=== PATIENT | male | born 1965 | race African-American/Black ===

== ENCOUNTER 2017-01-09 21:50 | Observation (INO) | payer SELFPAY ==
[~2017-01-09] VITALS: Ht 182.9 cm; Wt 104.5 kg
[2017-01-09 21:57] VITALS: BP 201/109; PULSE 72; RESP 16; TEMP 98.7; O2SAT 96
[2017-01-09] MEDS ORDERED: HYDR12.57 PO (22:21)
[2017-01-09] MEDS ORDERED: NORV2.5T PO (22:21)
[2017-01-09 22:22] VITALS: BP 191/116; PULSE 67; RESP 18; O2SAT 97
[2017-01-09] MEDS ORDERED: SODIUM CHLORID 0.9% 500 ML INJ 500 ML IV ONE (22:45)
[2017-01-09] MEDS ORDERED: SODIUM CHLORIDE 0.9% FLUSH 10 ML FLUSH IVF PRN (22:45)
[2017-01-09] MEDS ORDERED: ONDANSETRON HCL 4 MG/2 ML VIAL IVP ONE (22:45)
[2017-01-09] MEDS ORDERED: MECLIZINE HCL 25 MG TAB PO ONE (22:45)
[2017-01-09 22:52] LABS: AUTOMATED NEUTROPHIL # 2.1 TH/MM3 (1.8-7.7); BASOPHIL % 0.6 % (0.0-2.0); EOSINOPHIL # 0.1 TH/MM3 (0-0.4); EOSINOPHIL % 2.6 % (0.0-4.0); HEMO FLAGS DIFF FINAL; LYMPHOCYTE # 2.3 TH/MM3 (1.0-4.8); MEAN CELL VOLUME 83.8 FL (80.0-100.0); MEAN CORPUSCULAR HEMOGLOBIN 27.4 PG (27.0-34.0); MEAN CORPUSCULAR HGB CONC 32.7 % (32.0-36.0); MONO % 10.3 % (0.0-8.0); NEUT % 41.5 % (16.0-70.0); PLATELET COUNT 222 TH/MM3 (150-450); RED BLOOD COUNT 4.66 MIL/MM3 (4.50-5.90); RED CELL DISTRIBUTION WIDTH 13.8 % (11.6-17.2); WHITE BLOOD COUNT 5.2 TH/MM3 (4.0-11.0)
--- NOTE | 2017-01-09 22:55 | RADRPT ---
EXAM DATE/TIME: 01/09/2017 22:49 [facility] COMPARISON: No previous studies available for comparison. INDICATIONS : Dizziness and headache RADIATION DOSE: 47.04 CTDIvol (mGy) MEDICAL HISTORY : Cardiovascular disease. Hypertension. SURGICAL HISTORY : None. ENCOUNTER: Initial ACUITY: 1 day PAIN SCALE: 3/10 LOCATION: Bilateral cranial TECHNIQUE: Multiple contiguous axial images were obtained of the head. Using automated exposure control and adj ustment of the mA and/or kV according to patient size, radiation dose was kept as low as reasonably a chievable to obtain optimal diagnostic quality images. FINDINGS: CEREBRUM: The ventricles are normal for age. No evidence of midline shift, mass lesion, hemorrhage or acute in farction. No extra-axial fluid collections are seen. POSTERIOR FOSSA: The cerebellum and brainstem are intact. The 4th ventricle is midline. The cerebellopontine angle i s unremarkable. EXTRACRANIAL: The visualized portion of the orbits is intact. SKULL: The calvaria is intact. No evidence of skull fracture. CONCLUSION: 1. No evidence of acute intracranial pathology. No masses are identified. Raf Rueda MD on January 09, 2017 at 22:53 Board Certified Radiologist. This report was verified electronically.
[2017-01-09 23:02] LABS: APTT (PATIENT) 26.7 SEC (24.3-30.1)
[2017-01-09 23:20] LABS: CHLORIDE 104 MEQ/L (98-107); POTASSIUM 3.4 MEQ/L (3.5-5.1); SODIUM (NA) 141 MEQ/L (136-145)
[2017-01-09 23:27] LABS: ALKALINE PHOSPHATASE 51 U/L (45-117); ALT (GPT) 26 U/L (12-78); ANION GAP 6 MEQ/L (5-15); AST (GOT) 24 U/L (15-37); BICARBONATE 30.9 MEQ/L (21.0-32.0); BLOOD UREA NITROGEN 11 MG/DL (7-18); CREATINE KINASE 216 U/L (39-308); GLOMERULAR FILTRATION RATE 64 ML/MIN (>89); TOTAL BILIRUBIN ADULT 0.7 MG/DL (0.2-1.0)
--- NOTE | 2017-01-09 23:33 | RADRPT ---
EXAM DATE/TIME: 01/09/2017 23:20 [facility] COMPARISON: No previous studies available for comparison. INDICATIONS : Short of breath. MEDICAL HISTORY : Cardiovascular disease. Hypertension. SURGICAL HISTORY : None. ENCOUNTER: Initial ACUITY: 1 day PAIN SCORE: 0/10 LOCATION: Bilateral chest FINDINGS: A single view of the chest demonstrates the lungs to be symmetrically aerated without evidence of mas s, infiltrate or effusion. Atherosclerotic changes are present in the aorta location calcification. The cardiomediastinal contours are unremarkable. Osseous structures are intact. There are multiple o verlying cardiac leads. CONCLUSION: No acute disease. Douglas Landeros MD on January 09, 2017 at 23:31 Board Certified Radiologist. This report was verified electronically.
[2017-01-09 23:40] LABS: CKMB 1.1 NG/ML (0.5-3.6)
[2017-01-10] VITALS (9 sets, daily range): BP systolic 141–193; BP diastolic 84–106; PULSE 61–75; RESP 18–20; TEMP 97.5–98.2; O2SAT 95–98
[2017-01-10] MEDS ORDERED: cloNIDine HCL 0.2 MG TAB PO ONE (00:15)
--- NOTE | 2017-01-10 00:29 | PD ---
HPI Chief Complaint: Dizziness Time Seen by Provider: 22:22 Travel History International Travel<30 days: No Contact w/Intl Traveler<30days: No Traveled to known affect area: No History of Present Illness HPI Patient is a 51-year-old male who comes in after a near syncopal episode. He says he was on the beach today when he suddenly became very dizzy and felt significantly was given a pass out. He says he went down to his knees, but he did not fall or hit his head. He has a left-sided headache. He denies any blurred vision, chest pain, shortness of breath. His blood pressure has been elevated today. [facility] Past Medical History Cardiovascular Problems: Yes (HTN) Diminished Hearing: No Hypertension: Yes Medical other: Yes (BLOOD CLOTS ) Tetanus Vaccination: < 5 Years Social History Alcohol Use: No Tobacco Use: No Substance Use: No Allergies-Medications (Allergen,Severity, Reaction): Coded Allergies: No Known Allergies (Unverified , 01/09/17) Reported Meds & Prescriptions Reported Meds & Active Scripts Active Reported Hydrochlorothiazide 12.5 Mg Cap 12.5 Mg PO DAILY Norvasc (Amlodipine Besylate) 2.5 Mg Tab 2.5 Mg PO DAILY Review of Systems Except as stated in HPI: all other systems reviewed are Neg General / Constitutional: No: Fever, Chills Eyes: No: Blurred Vision HENT: Positive: Headaches, Lightheadedness Cardiovascular: No: Chest Pain or Discomfort Respiratory: No: Shortness of Breath Gastrointestinal: No: Nausea, Vomiting Musculoskeletal: No: Myalgias Skin: No Rash, No Change in Pigmentation Neurologic: Positive: Dizziness Physical Exam Narrative GENERAL: Awake and alert, in no acute distress. SKIN: Focused skin assessment warm/dry. HEAD: Atraumatic. Normocephalic. EYES: Pupils equal and round. No scleral icterus. Extraocular movements intact. ENT: Mucous membranes pink and moist. NECK: Trachea midline. No JVD. CARDIOVASCULAR: Regular rate and rhythm. No murmur appreciated. RESPIRATORY: No accessory muscle use. Clear to auscultation. Breath sounds equal bilaterally. GASTROINTESTINAL: Abdomen soft, non-tender, nondistended. MUSCULOSKELETAL: No obvious deformities. No clubbing. No cyanosis. No edema. NEUROLOGICAL: Awake and alert. No obvious cranial nerve deficits. Motor grossly within normal limits. Normal speech. PSYCHIATRIC: Appropriate mood and affect; insight and judgment normal. Data Data Last Documented VS Vital Signs Date Time Temp Pulse Resp B/P Pulse Ox O2 Delivery O2 Flow Rate FiO2 01/09/17 22:22 67 18 191/116 97 01/09/17 21:57 98.7 Room Air Orders Complete Blood Count With Diff (01/09/17 22:31) Comprehensive Metabolic Panel (01/09/17 22:31) Ckmb (Isoenzyme) Profile (01/09/17 22:31) Troponin I (01/09/17 22:31) Act Partial Throm Time (Ptt) (01/09/17 22:31) Prothrombin Time / Inr (Pt) (01/09/17 22:31) Chest, Single Ap (01/09/17 22:31) Ct Brain W/O Iv Contrast(Rout) (01/09/17 22:31) Ecg Monitoring (01/09/17 22:31) Iv Access Insert/Monitor (01/09/17 22:31) Oximetry (01/09/17 22:31) Meclizine (Antivert) (01/09/17 22:45) Ondansetron Inj (Zofran Inj) (01/09/17 22:45) Sodium Chloride 0.9% Flush (Ns Flush) (01/09/17 22:45) Sodium Chlorid 0.9% 500 Ml Inj (Ns 500 M (01/09/17 22:45) CKMB (01/09/17 22:44) CKMB% (01/09/17 22:44) Clonidine (Catapres) (01/10/17 00:15) Admit Order (Ed Use Only) (01/10/17 ) Labs Laboratory Tests Test 01/09/17 22:44 White Blood Count 5.2 TH/MM3 Red Blood Count 4.66 MIL/MM3 Hemoglobin 12.8 GM/DL Hematocrit 39.0 % Mean Corpuscular Volume 83.8 FL Mean Corpuscular Hemoglobin 27.4 PG Mean Corpuscular Hemoglobin 32.7 % Concent Red Cell Distribution Width 13.8 % Platelet Count 222 TH/MM3 Mean Platelet Volume 8.2 FL Neutrophils (%) (Auto) 41.5 % Lymphocytes (%) (Auto) 45.0 % Monocytes (%) (Auto) 10.3 % Eosinophils (%) (Auto) 2.6 % Basophils (%) (Auto) 0.6 % Neutrophils # (Auto) 2.1 TH/MM3 Lymphocytes # (Auto) 2.3 TH/MM3 Monocytes # (Auto) 0.5 TH/MM3 Eosinophils # (Auto) 0.1 TH/MM3 Basophils # (Auto) 0.0 TH/MM3 CBC Comment DIFF FINAL Differential Comment Prothrombin Time 11.0 SEC Prothromb Time International 1.0 RATIO Ratio Activated Partial 26.7 SEC Thromboplast Time Sodium Level 141 MEQ/L Potassium Level 3.4 MEQ/L Chloride Level 104 MEQ/L Carbon Dioxide Level 30.9 MEQ/L Anion Gap 6 MEQ/L Blood Urea Nitrogen 11 MG/DL Creatinine 1.41 MG/DL Estimat Glomerular Filtration 64 ML/MIN Rate Random Glucose 102 MG/DL Calcium Level 8.4 MG/DL Total Bilirubin 0.7 MG/DL Aspartate Amino Transf 24 U/L (AST/SGOT) Alanine Aminotransferase 26 U/L (ALT/SGPT) Alkaline Phosphatase 51 U/L Total Creatine Kinase 216 U/L Creatine Kinase MB 1.1 NG/ML Troponin I LESS THAN 0.02 NG/ML Total Protein 7.9 GM/DL Albumin 3.6 GM/DL D-Dimer Quantitative (PE/DVT) 2.10 MG/L [facility] Medical Decision Making Medical Screen Exam Complete: Yes Emergency Medical Condition: Yes Interpretation(s) ECG shows normal sinus rhythm, no ST elevation or depression and normal intervals Differential Diagnosis Electrolyte abnormality versus arrhythmia versus ACS Narrative Course Patient is a 51-year-old male comes in complaining of a near syncopal episode. Exam shows no neurologic abnormalities. IV established, labs sent. Labs show no acute abnormalities. CT head performed shows no acute abnormalities. Last 24 hours Impressions Lower Extremity Ultrasound 01/10/17 0000 Signed Impressions: Service Date/Time: December 03:13 - CONCLUSION: Nonocclusive bilateral deep venous thrombosis of indeterminate age but may be chronic. Douglas Landeros MD Head CT 01/09/172230 Signed Impressions: Service Date/Time: Monday, January 09, 2017 22:49 - CONCLUSION: 1. No evidence of acute intracranial pathology. No masses are identified. Raf Rueda MD Chest X-Ray 5/17/17 2231 Signed Impressions: Service Date/Time: Monday, January 09, 2017 23:20 - CONCLUSION: No acute disease. Douglas Landeros MD Patient given IV fluids. Given clonidine for his blood pressure. Placed in observation for near-syncope. Diagnosis Primary Impression: Near syncope Admitting Information Admitting Physician Requests: Observation Condition: Stable Melita Ferrell MD January 10, 2017 00:29
[2017-01-10] MEDS ORDERED: NALOXONE HCL 0.4 MG/ML AMP IV PRN (00:30)
[2017-01-10] MEDS ORDERED: SODIUM CHLORIDE 0.9% FLUSH 10 ML FLUSH IV FLUSH PRN (00:30)
[2017-01-10] MEDS ORDERED: POTASSIUM CHLORIDE 20 MEQ CONTROLLED RELEASE TAB PO ONE ×2 (00:45→15:00)
--- NOTE | 2017-01-10 02:03 | HHI.HP ---
[facility] Primary Care Physician No Primary Care Physician Admission Diagnosis near-syncope Diagnoses: Travel History International Travel<30 Days: No Contact w/Intl Traveler <30 Da: No Traveled to Known Affected Are: No History of Present Illness lightheaded while walking on beach no ear proble rested for na hour on car still dizzy no ear problem never had similar symptoms left arm numbness nad tingling past few days and now no weakness felt leg on right is swollken more than left hx of dvt in both calfs was on coumadin - for years [ off for it for 4 yrs now never found reason for clots couple fo times blood clot a week ago, came here from [place] by bus was little short of breath no chest pain Review of Systems Except as stated in HPI: all other systems reviewed are Neg Past Family Social History Past Medical History htn hx of dvt of bilateral LE - started late s, happened a few times- off coumadin 4 yrs as they dissolved per his doctors Past Surgical History left knee sx- 2013 Reported Medications norvasc 5mg po daily hctz 12.5mg po daily Allergies: Coded Allergies: No Known Allergies (Unverified , 01/09/17) Family History cancer - grandfather htn , dm- mother Social History no smoking/ no etoh/ no drugs smoked only for 2 yrs as a teenager Physical Exam Vital Signs Vital Signs Date Time Temp Pulse Resp B/P Pulse Ox O2 Delivery O2 Flow Rate FiO2 01/10/17 01:56 152/88 01/10/17 01:41 97.9 70 20 193/98 96 01/10/17 00:59 75 18 170/96 98 01/09/17 22:22 67 18 191/116 97 01/09/17 22:21 68 18 97 01/09/17 21:57 98.7 72 16 201/109 96 Room Air Physical Exam GENERAL: This is a well-nourished, well-developed patient, in no apparent distress. SKIN: No rashes, ecchymoses or lesions. Cool and dry. HEAD: Atraumatic. Normocephalic. No temporal or scalp tenderness. EYES: Pupils equal round and reactive. Extraocular motions intact. No scleral icterus. No injection or drainage. ENT: Nose without bleeding, purulent drainage or septal hematoma. Airway patent. NECK: Trachea midline. No JVD CARDIOVASCULAR: Regular rate and rhythm without murmurs, gallops, or rubs. RESPIRATORY: Clear to auscultation. Breath sounds equal bilaterally. No wheezes , rales, or rhonchi. GASTROINTESTINAL: Abdomen soft, non-tender, nondistended. No guarding. MUSCULOSKELETAL: Extremities without clubbing, cyanosis. Right lower extremity significantly bigger than the left. Pain on bilateral calf. NEUROLOGICAL: Awake and alert Motor and sensory grossly within normal limits. Normal speech. Laboratory Laboratory Tests Test 01/09/17 22:44 White Blood Count 5.2 Red Blood Count 4.66 Hemoglobin 12.8 Hematocrit 39.0 Mean Corpuscular Volume 83.8 Mean Corpuscular Hemoglobin 27.4 Mean Corpuscular Hemoglobin 32.7 Concent Red Cell Distribution Width 13.8 Platelet Count 222 Mean Platelet Volume 8.2 Neutrophils (%) (Auto) 41.5 Lymphocytes (%) (Auto) 45.0 Monocytes (%) (Auto) 10.3 Eosinophils (%) (Auto) 2.6 Basophils (%) (Auto) 0.6 Neutrophils # (Auto) 2.1 Lymphocytes # (Auto) 2.3 Monocytes # (Auto) 0.5 Eosinophils # (Auto) 0.1 Basophils # (Auto) 0.0 CBC Comment DIFF FINAL Differential Comment Prothrombin Time 11.0 Prothromb Time International 1.0 Ratio Activated Partial 26.7 Thromboplast Time Sodium Level 141 Potassium Level 3.4 Chloride Level 104 Carbon Dioxide Level 30.9 Anion Gap 6 Blood Urea Nitrogen 11 Creatinine 1.41 Estimat Glomerular Filtration 64 Rate Random Glucose 102 Calcium Level 8.4 Total Bilirubin 0.7 Aspartate Amino Transf 24 (AST/SGOT) Alanine Aminotransferase 26 (ALT/SGPT) Alkaline Phosphatase 51 Total Creatine Kinase 216 Creatine Kinase MB 1.1 Troponin I LESS THAN 0.02 Total Protein 7.9 Albumin 3.6 Result Diagram: 01/09/17 2244 01/09/17 2244 Imaging Last 48 hours Impressions Lower Extremity Ultrasound 01/10/17 0000 Signed Impressions: Service Date/Time: December 03:13 - CONCLUSION: Nonocclusive bilateral deep venous thrombosis of indeterminate age but may be chronic. Douglas Landeros MD CT Angiography 01/10/17 0000 Signed Impressions: Service Date/Time: December 05:37 - CONCLUSION: 1. No evidence of pulmonary embolism. 2. No confluent infiltrates or effusions. 3. Cardiomegaly with no evidence of pulmonary edema Douglas Landeros MD Head CT 01/09/172230 Signed Impressions: Service Date/Time: Monday, January 09, 2017 22:49 - CONCLUSION: 1. No evidence of acute intracranial pathology. No masses are identified. Raf Rueda MD Chest X-Ray 01/09/172230 Signed Impressions: Service Date/Time: Monday, January 09, 2017 23:20 - CONCLUSION: No acute disease. Douglas Landeros MD Assessment and Plan Assessment and Plan Impression: Dizziness/near syncopal episodesetiology unclear. Rule out cardiac arrhythmia/ thromboembolism. Bilateral lower extremity edema with calf asymmetryrule out acute DVT. Recent travel from [place] to here by us a week ago, with complaint of shortness of breathrule out pulmonary embolism. Hypokalemiareplaced. We'll repeat. Renal insufficiencyacute versus chronic. Possible secondary to dehydration. We'll hydrate and repeat. htn hx of dvt of bilateral LE - started late 80s, happened a few times- off coumadin 4 yrs as they dissolved per his doctors Plan: Serial cardiac enzymes and EKGs. Telemetry monitoring. Echocardiogram. Carotid sono. Would obtain bilateral lower extremity ultrasound to rule out DVT. Would need anticoagulation lifelong. My opinion. Also obtain CT pulmonary angiogram to rule out PE. Resume home meds for hypertension. DVT prophylaxisLovenox. Discussed Condition With Patient, ER physician, patient's nurse Pako Bran MD January 10, 2017 02:03
[2017-01-10] MEDS: SODIUM CHLOR 0.9% 1000 ML INJ 1,000 ML IV SCH ×2 (02:18→15:08)
--- NOTE | 2017-01-10 04:13 | RADRPT ---
EXAM DATE/TIME: 01/10/2017 03:13 [facility] COMPARISON: No previous studies available for comparison. INDICATIONS : Bilateral leg swelling. MEDICAL HISTORY : Hypertension. Deep vein thrombosis. SURGICAL HISTORY : Left knee surgery. ENCOUNTER: Initial ACUITY: 1 day PAIN SCORE: 0/10 LOCATION: Bilateral leg. TECHNIQUE: Venous ultrasound of the left and right leg was performed from the inguinal ligament to the proximal calf. Real-time, color Doppler and spectral tracing, compression and augmentation techniques were us ed. FINDINGS: RIGHT LEG: There is nonocclusive thrombus in the superficial femoral vein, popliteal vein and peroneal vein whic h are partially compressible. The common femoral vein is patent and compressible. The posterior tibia l vein and greater saphenous vein are compressible as well. LEFT LEG: There is nonocclusive thrombus in the superficial femoral vein, popliteal vein and peroneal vein whic h are only partially compressible. The common femoral vein is patent and fully compressible. The post erior tibial vein and greater saphenous vein are patent as well and fully compressible. CONCLUSION: Nonocclusive bilateral deep venous thrombosis of indeterminate age but may be chronic. Douglas Landeros MD on January 10, 2017 at 4:08 Board Certified Radiologist. This report was verified electronically.
[2017-01-10] MEDS ORDERED: ENOXAPARIN SODIUM 100 MG/ML SYRINGE SQ SCH (05:00)
[2017-01-10] MEDS ORDERED: IOHEXOL 350 MG/ML 10 ML VIAL (for RAD DIAG) IV ONE (05:40)
--- NOTE | 2017-01-10 06:11 | RADRPT ---
EXAM DATE/TIME: 01/10/2017 05:37 [facility] COMPARISON: No previous studies available for comparison. INDICATIONS : Shortness of breath. Elevated D-Dimer. IV CONTRAST: 75 cc Omnipaque 350 (iohexol) IV RADIATION DOSE: 23.38 CTDIvol (mGy) MEDICAL HISTORY : Hypertension. Deep venous thrombosis. SURGICAL HISTORY : None. ENCOUNTER: Initial ACUITY: 1 day PAIN SCALE: 0/10 LOCATION: chest TECHNIQUE: Volumetric scanning of the chest was performed using a pulmonary embolism protocol MIP images were re constructed. Using automated exposure control and adjustment of the mA and/or kV according to patien t size, radiation dose was kept as low as reasonably achievable to obtain optimal diagnostic quality images. FINDINGS: PULMONARY ARTERIES: No filling defects are seen in the pulmonary arteries through the segmental level. LUNGS: There is no consolidation or pneumothorax . No concerning pulmonary nodule is visualized. PLEURAE: There is no pleural thickening or pleural effusion. MEDIASTINUM: There is good visualization of the great vessels of the middle mediastinum. No evidence of mediastin al or hilar adenopathy/mass. There is moderate cardiomegaly. The MUSCULOSKELETAL: Within normal limits for patient age. MISCELLANEOUS: The visualized upper abdominal organs demonstrate no acute abnormality. CONCLUSION: 1. No evidence of pulmonary embolism. 2. No confluent infiltrates or effusions. 3. Cardiomegaly with no evidence of pulmonary edema Douglas Landeros MD on January 10, 2017 at 6:08 Board Certified Radiologist. This report was verified electronically.
[2017-01-10] MEDS ORDERED: cloNIDine HCL 0.1 MG TAB PO PRN (07:30)
--- NOTE | 2017-01-10 10:01 | RADRPT ---
EXAM DATE/TIME: 01/10/2017 08:07 [facility] COMPARISON: No previous studies available for comparison. INDICATIONS : Syncope. MEDICAL HISTORY : Hypertension. History of DVT. SURGICAL HISTORY : Left knee surgery. ENCOUNTER: Initial ACUITY: 1 day PAIN SCORE: 1/10 LOCATION: Bilateral neck PEAK SYSTOLIC VELOCITIES (cm/sec): ICA/CCA RATIO: Right: 0.8 Left: 0.9 ICA: Right: 58 Left: 74 CCA: Right: 73 Left: 87 ECA: Right: 71 Left: 51 VERTEBRAL: Right: 39 antegrade Left: 50 antegrade Elevated flow velocities and ICA/CCA ratios have been found to correlate with increased degrees of vessel stenosis, calculated as percentage of diameter relative to a normal segment of distal ICA/CCA FINDINGS: RIGHT CAROTID: No significant stenosis is visualized. The waveforms are within normal limits. LEFT CAROTID: No significant stenosis is visualized. The waveforms are within normal limits. VERTEBRAL ARTERIES: Antegrade flow is seen in both vertebral arteries. MISCELLANEOUS: None. CONCLUSION: 1. Patent carotid arteries bilaterally. 2. Antegrade flow involving both vertebral arteries. Bhaskar Villafuerte Jr., MD on January 10, 2017 at 9:26 Board Certified Radiologist. This report was verified electronically.
[2017-01-10] MEDS: SODIUM CHLORIDE 0.9% FLUSH 10 ML FLUSH IV FLUSH SCH ×2 (10:23→21:00)
[2017-01-10 13:09] LABS: CREATINE KINASE 137 U/L (39-308)
--- NOTE | 2017-01-10 13:49 | EKG ---
Date Performed: 01/10/2017 Time Performed: 05:07:00 PTAGE: 51 years EKG: Sinus rhythm NONSPECIFIC T-WAVE ABNORMALITY BORDERLINE ECG Compared to prior tracing no significant change PREVIOUS TRACING : 01/09/17 DOCTOR: Tello Flores Interpretating Date/Time 01/10/2017 13:45:36
--- NOTE | 2017-01-10 13:59 | EKG ---
Date Performed: 01/09/2017 Time Performed: 22:22:39 PTAGE: 51 years EKG: Sinus rhythm NONSPECIFIC T-WAVE ABNORMALITY BORDERLINE ECG Cannot rule out ischemia Clinical correlation is recom mended NO PREVIOUS TRACING DOCTOR: Tello Flores Interpretating Date/Time 01/10/2017 13:58:18
[2017-01-10] MEDS ORDERED: RIVAROXABAN 15 MG TAB PO ONE (14:30)
[2017-01-10] MEDS ORDERED: MECLIZINE HCL 25 MG TAB PO ONE (14:30)
--- NOTE | 2017-01-10 14:34 | RADRPT ---
EXAM DATE/TIME: 01/10/2017 11:47 [facility] COMPARISON: No previous studies available for comparison. INDICATIONS : Near syncope. MEDICAL HISTORY : Deep venous thrombosis. SURGICAL HISTORY : Left knee. ENCOUNTER: Initial ACUITY: 1 day PAIN SCORE: 0/10 LOCATION: Head. Please note a normal MRA of the brain does not entirely exclude the possibility of a small aneurysm, nor the possibility of distal intracranial vessel disease. TECHNIQUE: 3D time of flight MRA was performed. Source images, multiplanar STS MIP, and 3D volume MIP reconstru ctions were reviewed. FINDINGS: There is excellent visualization of the major intracranial arteries out to the second-order branch ve ssels. There is no evidence for aneurysm, vessel truncation or stenosis, and no evidence for vascula r malformation. There are prominent patent posterior communicating arteries bilaterally. Small P1 se gments bilaterally. CONCLUSION: Normal examination with a patent [place] of [place]. Ish Bergeron MD on January 10, 2017 at 14:32 Board Certified Radiologist. This report was verified electronically.
--- NOTE | 2017-01-10 14:40 | HHI.PR ---
Subjective Remarks Follow-up for lightheadedness. The patient continues to complain of lightheadedness at this time. He states the lightheadedness is persistent, even while lying in bed. He denies any room spinning sensation. He denies any vision changes or focal weakness. He states the symptoms started while [place] the [place] yesterday. He has some pain in his right leg. He does admit to some discomfort in his left hip during exam. Otherwise he denies any pain. He denies any chest pain, shortness of breath, fever, chills, nausea, vomiting, diarrhea. He was on Coumadin greater than 4 years ago for history of DVT. He states he was never found out why he was having blood clots. He never had any blood clots on Coumadin. He is recently moved to the area and is employed and hopes to have insurance and 30 days. He would like to avoid Coumadin if possible. Objective Vitals Vital Signs Date Time Temp Pulse Resp B/P Pulse Ox O2 Delivery O2 Flow Rate FiO2 01/10/17 12:29 98.2 61 19 142/89 95 141/89 142/90 01/10/17 09:41 72 01/10/17 08:00 97.9 64 19 149/90 96 01/10/17 02:30 65 01/10/17 01:56 152/88 01/10/17 01:41 97.9 70 20 193/98 96 01/10/17 00:59 75 18 170/96 98 01/09/17 22:22 67 18 191/116 97 01/09/17 22:21 68 18 97 01/09/17 21:57 98.7 72 16 201/109 96 Room Air Result Diagram: 01/09/17 2244 01/09/17 2244 Imaging Last Impressions Lower Extremity Ultrasound 01/10/17 0000 Signed Impressions: Service Date/Time: December 03:13 - CONCLUSION: Nonocclusive bilateral deep venous thrombosis of indeterminate age but may be chronic. Douglas Landeros MD Carotid Artery Ultrasound 01/10/17 0000 Signed Impressions: Service Date/Time: December 08:07 - CONCLUSION: 1. Patent carotid arteries bilaterally. 2. Antegrade flow involving both vertebral arteries. Bhaskar Villafuerte Jr., MD CT Angiography 01/10/17 0000 Signed Impressions: Service Date/Time: December 05:37 - CONCLUSION: 1. No evidence of pulmonary embolism. 2. No confluent infiltrates or effusions. 3. Cardiomegaly with no evidence of pulmonary edema Douglas Landeros MD Head CT 01/09/172230 Signed Impressions: Service Date/Time: Monday, January 09, 2017 22:49 - CONCLUSION: 1. No evidence of acute intracranial pathology. No masses are identified. Raf Rueda MD Chest X-Ray 01/09/172230 Signed Impressions: Service Date/Time: Monday, January 09, 2017 23:20 - CONCLUSION: No acute disease. Douglas Landeros MD Objective Remarks GENERAL: Well-developed well-nourished. In no acute distress. SKIN: Warm and dry. No lesions noted. HEENT: Normocephalic. Pupils equal and round. Mucous membranes pink and moist. CARDIOVASCULAR: Regular rate and rhythm. No murmur appreciated. RESPIRATORY: No accessory muscle use. Clear to auscultation. Breath sounds equal bilaterally. GASTROINTESTINAL: Abdomen soft, non-tender, nondistended. Bowel sounds x4. MUSCULOSKELETAL: Bilateral lower extremity swelling, R>L. No clubbing or cyanosis. NEUROLOGICAL: Awake and alert. Moves upper and lower extremities spontaneously. Normal speech. Strength 5/5 in upper extremities and right lower extremity. Strength 4/5 on left hip, but 5/5 on dorsi and plantar flexion on the left leg. No facial asymmetry or gross cranial nerve deficits. PSYCHIATRIC: Appropriate mood and affect; insight and judgment normal. A/P Assessment and Plan 51-year-old male with past medical history of HTN and DVT who presented with dizziness and right leg swelling Dizziness with near syncope: Unclear etiology. Reviewed: EKG with NSR and nonspecific T-wave changes. Troponin negative 2. Head CT with no acute intracranial pathology. Pulmonary angiogram with no evidence of PE, infiltrate, or effusion. Carotid ultrasound with patent carotids and antegrade flow within both vertebral arteries. Creatinine 1.41. Non-orthostatic. -Trend troponins -Brain MRI/MRA -Monitor on telemetry -Trial of meclizine 1 -IVF -PT eval -Follow up labs today including TSH and B12 Bilateral lower extremity DVT: Bilateral lower extremity Doppler shows bilateral nonocclusive DVTs, possibly chronic appearing. With history of DVT in the past, no issues on Coumadin, the patient likely needs to be on lifelong anticoagulation. He needs hematologic workup as outpatient. Currently on therapeutic Lovenox. Discussed going back on Coumadin vs starting NOACs regarding risks/benefits, and patient wants to start on Xarelto, will start. Case management consult for patient assistance and Xarelto coupon, although the patient may have insurance in 30 days. WILMER vs CKD: Creatinine 1.41, no previous labs for comparison. IVF. Follow-up BMP. Mild hypokalemia: Potassium 3.4. Replace orally. Check magnesium and follow up repeat potassium. Hypertension: Chronic. Accelerated at admission, better controlled now. Hold HCTZ with WILMER. Increased amlodipine. Clonidine as needed. Medardo Abdi January 10, 2017 14:40
[2017-01-10 16:33] LABS: MAGNESIUM 2.1 MG/DL (1.5-2.5)
[2017-01-10 16:56] LABS: AUTOMATED NEUTROPHIL # 1.7 TH/MM3 (1.8-7.7); BASOPHIL % 0.5 % (0.0-2.0); EOSINOPHIL # 0.1 TH/MM3 (0-0.4); EOSINOPHIL % 2.8 % (0.0-4.0); HEMATOCRIT 36.2 % (39.0-51.0); HEMO FLAGS DIFF FINAL; LYMPH % 50.3 % (9.0-44.0); LYMPHOCYTE # 2.4 TH/MM3 (1.0-4.8); MEAN CELL VOLUME 83.7 FL (80.0-100.0); MEAN CORPUSCULAR HGB CONC 33.4 % (32.0-36.0); MONO % 10.7 % (0.0-8.0); NEUT % 35.7 % (16.0-70.0); PLATELET COUNT 213 TH/MM3 (150-450); RED BLOOD COUNT 4.33 MIL/MM3 (4.50-5.90); WHITE BLOOD COUNT 4.8 TH/MM3 (4.0-11.0)
[2017-01-10 17:14] LABS: BICARBONATE 29.8 MEQ/L (21.0-32.0); POTASSIUM 3.6 MEQ/L (3.5-5.1)
[2017-01-10 22:21] LABS: CREATINE KINASE 137 U/L (39-308)
[2017-01-10] MEDS ORDERED: ACETAMINOPHEN 325 MG TAB PO ONE (22:45)
[2017-01-11 00:02] VITALS: BP 158/95; PULSE 61; RESP 20; TEMP 98.4; O2SAT 96
[2017-01-11 00:51] VITALS: PULSE 57
[2017-01-11] MEDS: SODIUM CHLOR 0.9% 1000 ML INJ 1,000 ML IV SCH ×2 (01:49→14:00)
[2017-01-11 07:30] VITALS: BP 159/94; PULSE 63; RESP 20; TEMP 96.9; O2SAT 97
[2017-01-11] MEDS ORDERED: RIVAROXABAN 15 MG TAB PO SCH (09:00)
[2017-01-11] MEDS: SODIUM CHLORIDE 0.9% FLUSH 10 ML FLUSH IV FLUSH SCH (09:02)
[2017-01-11] MEDS ORDERED: RIVA1TAB PO (10:08)
[2017-01-11] MEDS ORDERED: AMLO10 PO (10:08)
--- NOTE | 2017-01-11 10:29 | HHI.PR ---
Subjective Remarks Follow up for lightheadedness. The patient reports feeling much better today. Denies any lightheadedness/dizziness while lying in bed however did have some slight lightheadedness immediately upon standing early this morning, went away after 1-2 minutes. Counseled on slow transitions from lying to sitting to standing, patient verbalized understanding. The patient has no other medical complaints at this time. He feels ready for discharge today. Objective Vitals Vital Signs Date Time Temp Pulse Resp B/P Pulse Ox O2 Delivery O2 Flow Rate FiO2 01/11/17 07:30 96.9 63 20 159/94 97 01/11/17 00:51 57 01/11/17 00:02 98.4 61 20 158/95 96 01/10/17 20:13 98.2 70 19 175/84 95 01/10/17 16:33 97.5 66 20 171/106 95 01/10/17 12:29 98.2 61 19 142/89 95 141/89 142/90 Result Diagram: 01/10/17 1629 01/10/17 1629 Imaging Last Impressions Lower Extremity Ultrasound 01/10/17 0000 Signed Impressions: Service Date/Time: December 03:13 - CONCLUSION: Nonocclusive bilateral deep venous thrombosis of indeterminate age but may be chronic. Douglas Landeros MD Head Magnetic Resonance Angiography 01/10/17 0000 Signed Impressions: Service Date/Time: December 11:47 - CONCLUSION: Normal examination with a patent [place] of [place]. Ish Bergeron MD Carotid Artery Ultrasound 01/10/17 0000 Signed Impressions: Service Date/Time: December 08:07 - CONCLUSION: 1. Patent carotid arteries bilaterally. 2. Antegrade flow involving both vertebral arteries. Bhaskar Villafuerte Jr., MD CT Angiography 01/10/17 0000 Signed Impressions: Service Date/Time: December 05:37 - CONCLUSION: 1. No evidence of pulmonary embolism. 2. No confluent infiltrates or effusions. 3. Cardiomegaly with no evidence of pulmonary edema Douglas Landeros MD Head CT 01/09/17 2231 Signed Impressions: Service Date/Time: Monday, January 09, 2017 22:49 - CONCLUSION: 1. No evidence of acute intracranial pathology. No masses are identified. Raf Rueda MD Chest X-Ray 01/09/172230 Signed Impressions: Service Date/Time: Monday, January 09, 2017 23:20 - CONCLUSION: No acute disease. Douglas Landeros MD Objective Remarks GENERAL: Well-nourished, well-developed pleasant middle aged AA male patient in [facility]. SKIN: Warm and dry. No rash. HEENT: Normocephalic. Atraumatic.Pupils equal and round. Mucous membranes pink and moist. NECK: Supple. Trachea midline. CARDIOVASCULAR: Regular rate and rhythm. S1, S2 noted. No murmur appreciated. RESPIRATORY: No accessory muscle use. Clear to auscultation. Breath sounds equal bilaterally. GASTROINTESTINAL: Abdomen soft, non-tender, nondistended. Normoactive bowel sounds x4. MUSCULOSKELETAL: No obvious deformities. Extremities without clubbing, cyanosis , or edema. NEUROLOGICAL: Awake and alert. No obvious cranial nerve deficits. Motor grossly within normal limits. Normal speech. PSYCHIATRIC: Appropriate mood and affect; insight and judgment normal. Medications and IVs Current Medications Medications (Trade) Dose Ordered Sig/Haylee Route Start Time Stop Time Status Last Admin (NS Flush) 2 ml UNSCH PRN IV FLUSH 01/10/17 00:30 (NS Flush) 2 ml BID IV FLUSH 01/10/17 09:00 01/11/17 09:02 Naloxone HCl 0.4 mg 0.4 mg UNSCH PRN IV 01/10/17 00:30 (NS 1000 ml Inj) 1,000 ml @ 84 mls/hr [id number] IV 01/10/17 02:15 01/10/17 15:08 (Norvasc) 10 mg DAILY PO 01/10/17 09:00 01/11/17 09:02 (Catapres) 0.1 mg Q6H PRN PO 01/10/17 07:30 01/10/17 19:21 (Xarelto) 15 mg BID PO 01/11/17 09:00 01/11/17 09:02 A/P Problem List: (1) Near syncope ICD Code: R55 Status: Acute (2) Vertigo ICD Code: R42 Status: Acute (3) DVT (deep venous thrombosis) ICD Code: I82.409 Status: Acute (4) HTN (hypertension) ICD Code: I10 Status: Acute Assessment and Plan 51-year-old male with past medical history of HTN and DVT who presented with dizziness and right leg swelling Dizziness with near syncope: Unclear etiology, suspect vertigo however need to rule out other etiologies. Patient was walking on the beach when symptoms occurred. Reviewed: EKG with NSR and nonspecific T-wave changes. Troponin negative 3. Head CT with no acute intracranial pathology. CT-PA with no evidence of PE, infiltrate, or effusion. Carotid U/S with patent carotids and antegrade flow within both vertebral arteries. Creatinine 1.41. Orthostatics negative. Head MRA normal, patent [place] of [place]. -Monitor on telemetry, no acute events -Trial of meclizine 1, patient improving -Given IVF -PT eval -TSH and B12 wnl -echocardiogram results pending Bilateral lower extremity DVT: Bilateral lower extremity Doppler shows bilateral nonocclusive DVTs, possibly chronic appearing. With history of DVT in the past, no issues on Coumadin, the patient likely needs to be on lifelong anticoagulation. He needs hematologic workup as outpatient. Discussed going back on Coumadin vs starting NOACs regarding risks/benefits, and patient wants to start on Xarelto. Case management consult for patient assistance and Xarelto coupon, the patient will have health insurance in 30 days, recently started new employment. -started on Xarelto 15mg po bid [id number], then 20mg qd -case management provided Xarelto starter pack -outpatient hematology f/up WILMER vs CKD: Creatinine 1.41, no previous labs for comparison. Given IVF. Repeat BMP today. Mild hypokalemia: Potassium 3.4. Replaced orally. Mag wnl. Repeat K 3.6. Hypertension: Chronic. Accelerated at admission, better controlled now. Held HCTZ with WILMER. Increased amlodipine to 10mg qd. Clonidine as needed. Discussed with case management. Discharge Planning Discharge today if echocardiogram unremarkable. 1520hrs: Echocardiogram resulted, EF 55-60%. Repeat BMP improved with Cr 1.15. Patient stable for discharge. Discharge patient to home Condition on discharge: Improved Heart Healthy Diet as tolerated Ad Joanne activity Rx written: Xarelto starter pack, Norvasc 10mg daily, Meclizine prn Follow-up with primary care physician Dr. Dudley within 1 week Samira Hardin PA-C 19, 2017 10:29 am
[2017-01-11 11:26] VITALS: BP 156/86; PULSE 67; RESP 18; TEMP 97.6; O2SAT 98
[2017-01-11 11:41] VITALS: PULSE 68
[2017-01-11 12:51] LABS: BICARBONATE 30.9 MEQ/L (21.0-32.0); POTASSIUM 3.6 MEQ/L (3.5-5.1)
--- NOTE | 2017-01-11 14:51 | EC ---
Study Study Date:01/10/2017 STUDY CONCLUSIONS SUMMARY - Left ventricle: The cavity size was normal. Wall thickness was increased in a pattern of severe LVH. Systolic function was normal. The estimated ejection fraction was in the range of 55% to 60%. Wall motion was normal; there were no regional wall motion abnormalities. - Aortic valve: Valve area: 2.34cm^2 (Vmax). - Mitral valve: Mild regurgitation. - Tricuspid valve: Mild regurgitation. If LV function is below 40, please consider prescribing an ACEI or ARB or document rationale for non-use. PROCEDURE DATA STUDY STATUS: Elective. Procedure: Transthoracic echocardiography. Image quality was good. Scanning was performed from the parasternal, apical, and subcostal acoustic windows. Study completion: The patient tolerated the procedure well. Transthoracic echocardiography. M-mode, complete 2D, complete spectral Doppler, and color Doppler. Height: Height: 72in. Weight: Weight: 223.5lb. Body mass index: BMI: 30.4kg/m^2. Body surface area: BSA: 2.24m^2. Patient status: Inpatient. CARDIAC ANATOMY LEFT VENTRICLE: The cavity size was normal. Wall thickness was increased in a pattern of severe LVH. Systolic function was normal. The estimated ejection fraction was in the range of 55% to 60%. Wall motion was normal; there were no regional wall motion abnormalities. AORTIC VALVE: Trileaflet; normal thickness leaflets. Doppler: Transvalvular velocity was within the normal range. There was no stenosis. No regurgitation. Valve area: 2.34cm^2 (Vmax). Indexed valve area: 1.04cm^2/m^2 (Vmax). AORTA: Aortic root: The aortic root was normal in size. MITRAL VALVE: Structurally normal valve. Doppler: Transvalvular velocity was within the normal range. There was no evidence for stenosis. Mild regurgitation. Valve area by pressure half-time: 2.97cm^2. Indexed valve area by pressure half-time: 1.33cm^2/m^2. Peak gradient: 2mm Hg (D). LEFT ATRIUM: The atrium was normal in size. RIGHT VENTRICLE: The cavity size was normal. Wall thickness was normal. PULMONIC VALVE: Doppler: Transvalvular velocity was within the normal range. There was no evidence for stenosis. No regurgitation. TRICUSPID VALVE: Structurally normal valve. Doppler: Transvalvular velocity was within the normal range. Mild regurgitation. Peak gradient: 19mm Hg (D). PULMONARY ARTERY: The main pulmonary artery was normal-sized. Systolic pressure was within the normal range. RIGHT ATRIUM: The atrium was normal in size. PERICARDIUM: There was no pericardial effusion. SYSTEMIC VEINS: Inferior vena cava: The vessel was normal in size. Patient weight: 223.5lb _Ejection fraction:_ 65-75% _Fractional shortening:_ 32% up to 5Kg 5-11.5Kg 11.6-22.9Kg 23-45Kg 45-57Kg Aortic Root 7-13 <17 13-22 17-27 17-27 LA diam 6-13 <23 24-38 33-47 37-40 RVID 10-17 7-15 7-15 7-18 8-17 LVIDd 12-22 <32 24-38 33-47 37-40 LVPW 2-4 3-6 5-7 6-8 7-8 IVS 2-4 3-6 5-7 6-8 7-8 BASIC MEASUREMENTS ADULT NORMAL Left ventricle LV internal dimension, ED, chordal *38.9 mm 43-52 level, PLAX LV internal dimension, ES, chordal 26.2 mm 23-38 level, PLAX Fractional shortening, chordal level, 33 % >29 PLAX LV posterior wall thickness, ED 22 mm IVS/LVPW ratio, ED 1.01 <1.3 Volume, ED, MOD, 1-plane 114 ml Volume, ES, MOD, 1-plane 51 ml Ejection fraction, MOD, 1-plane 55 % Stroke volume, MOD, 1-plane 63 ml Volume index, ED, MOD, 1-plane 51 ml/m^2 Volume index, ES, MOD, 1-plane 23 ml/m^2 Stroke index, MOD, 1-plane 28.1 ml/m^2 Ventricular septum Septal thickness, ED 22.2 mm Aortic valve Leaflet separation *27 mm 15-26 Left atrium Anterior-posterior dimension 44 mm Anterior-posterior dimension index 1.96 cm/m^2 <2.2 Right ventricle RV internal dimension, ED, PLAX 31.9 mm 19-38 BASIC MEASUREMENTS ADULT NORMAL Aortic valve Leaflet separation *27 mm 15-26 Aorta Root diameter, ED 36 mm 20-37 Left atrium Anterior-posterior dimension, ES *43 mm 19-40 Anterior-posterior dimension index, ES 1.92 cm/m^2 <2.2 LA/aortic root ratio 1.19 DOPPLER MEASUREMENTS ADULT NORMAL Aortic valve Peak velocity, S 125 cm/s Valve area, Vmax 2.34 cm^2 Valve area index, Vmax 1.04 cm^2/m^2 Mitral valve Peak E-wave velocity 76.5 cm/s Peak A-wave velocity 63.7 cm/s Pressure half-time 74 ms Peak gradient, D 2 mm Hg Peak E/A ratio 1.2 Valve area, pressure half-time 2.97 cm^2 Valve area index, pressure half-time 1.33 cm^2/m^2 Tricuspid valve Peak gradient, D 19 mm Hg Maximal inflow velocity 218 cm/s Systemic veins Estimated CVP 10 mm Hg Pulmonic valve Peak velocity, S 78.7 cm/s Acceleration time 504 ms LEGEND: Mean values are shown as u=mean value. Asterisk (*) rosa values outside specified normal range. Prepared and signed by Cosmo Baum [id number]
--- NOTE | 2017-01-11 15:03 | HHI.DCPOC ---
Discharge Care Plan Diagnosis: (1) Near syncope (2) Vertigo (3) HTN (hypertension) (4) DVT (deep venous thrombosis) Goals to Promote Your Health * To prevent worsening of your condition and complications * To maintain your health at the optimal level Directions to Meet Your Goals Take your medications as prescribed Follow your dietary instruction Follow activity as directed Keep your appointments as scheduled Take your immunizations and boosters as scheduled If your symptoms worsen call your PCP, if no PCP go to Urgent Care Center or Emergency Room Smoking is Dangerous to Your Health. Avoid second hand smoke Call the 24-hour hour crisis hotline for domestic abuse at Samira Hardin PA-C January 11, 2017 3:03 pm
[2017-01-11 15:09] VITALS: BP_SYST 168; BP_DIAS 105; BP_DIAS 96; PULSE 70; RESP 19; O2SAT 97
[2017-01-11] MEDS ORDERED: MECL-62 PO (15:22)
--- NOTE | 2017-01-11 21:59 | EKG ---
Date Performed: 01/10/2017 Time Performed: 11:14:57 PTAGE: 51 years EKG: Sinus rhythm MODERATE T-WAVE ABNORMALITY, CONSIDER ANTERIOR ISCHEMIA ABNORMAL ECG PREVIOUS TRACING : 01/10/2017 05.07 Compared to prior tracing no significant change DOCTOR: Cosme Lauren Interpretating Date/Time 01/11/2017 21:59:06
== END 2017-01-11 16:31 | disposition home or self-care (01) ==
LOC: NEPE 21:50 → NEDA 01-10 00:30 → NEPGCP 01-10 01:38
PROVIDERS: ADMIT Internal Medicine; ATTEND Internal Medicine
DX: R42 Dizziness and giddiness (principal); R51 Headache; I11.9 Hypertensive heart disease without heart failure; I82.503 Chronic embolism and thrombosis of unspecified deep veins of lower extremity, bilateral; R55 Syncope and collapse; R20.0 Anesthesia of skin; E87.6 Hypokalemia; R94.31 Abnormal electrocardiogram [ECG] [EKG]
CPT/HCPCS: 70450; 70544; 71010; 71275; 80048; 80053; 82550; 82552; 82607; 83735; 84443; 84484; 85025; 85379; 85610; 85730; 93005; 93306; 93880; 93970; 96374; 97116; 97162; 99285; G0378; G8987; G8988; J1650; J2405; J7030; J7040; Q9967